=== PATIENT | female | born 1965 | race Hispanic/Latino ===

== ENCOUNTER 2017-01-21 13:24 | Emergency (ER) | payer MEDICAID ==
[2017-01-21 14:20] LABS: Basophils % (Auto) 1.1 % (0.0-1.8); Eosinophils % (Auto) 0.5 % (0.0-4.3); Hematocrit 44.7 % (30.3-42.9); Hemoglobin 15.1 gm/dl (10.1-14.3); Mean Corpuscular HGB Conc 34 % (30-34); Mean Corpuscular Hemoglobin 30 pg (28-32); Mean Corpuscular Volume 90 fl (79-97); Platelet Count 289 K/mm3 (140-440); Red Blood Count 4.99 M/mm3 (3.65-5.03); Red Cell Distribution Width 13.1 % (13.2-15.2); White Blood Count 15.2 K/mm3 (4.5-11.0)
[2017-01-21 14:43] LABS: Alanine Aminotransferase 21 units/L (7-56); Albumin 3.9 g/dL (3.9-5); Alkaline Phosphatase 112 units/L (35-129); Anion Gap 21 mmol/L; BUN/Creatinine Ratio 11.42; Blood Urea Nitrogen 8 mg/dL (7-17); Calcium 9.2 mg/dL (8.4-10.2); Carbon Dioxide 23 mmol/L (22-30); Chloride 97.7 mmol/L (98-107); Glucose 136 mg/dL (65-100); Lipase 34 units/L (13-60); Potassium 4.3 mmol/L (3.6-5.0); Sodium 137 mmol/L (137-145); Total Protein 7.7 g/dL (6.3-8.2)
[2017-01-22] MEDS ORDERED: NACL 0.9% 1000 ML 1,000 ML IV ONE (00:15)
[2017-01-22] MEDS ORDERED: MORPHINE IV ONE (00:15)
[2017-01-22] MEDS ORDERED: ZOFRAN IV ONE (00:15)
[2017-01-22] MEDS ORDERED: LEVAQUIN PO ONE (01:00)
[2017-01-22] MEDS ORDERED: FLAGYL PO ONE (01:00)
--- NOTE | 2017-01-22 01:03 | Emergency Department Report ---
HPI - General Chief Complaint: Abdominal Pain Time Seen by Provider: 01/21/17 23:55 - HPI HPI: The patient is a 51-year-old female who presents for evaluation of abdominal pain. The patient reports left lower quadrant abdominal pain for the past one day, currently 7/10 in severity, cramping in quality, on and off, is worsened with attempts to defecate. The patient denies fever, chills, night sweats, nausea, vomiting, diarrhea, blood in the stool, dark tarry stool, dysuria, hematuria, flank pain, genital discharge, inability to pass flatus or defecate. ED Past Medical Hx - Past Medical History Previous Medical History?: Yes Hx COPD: Yes Additional medical history: skin cancer - Surgical History Past Surgical History?: Yes Hx Cholecystectomy: Yes Additional Surgical History: right knee surgery, growth removal. tubal ligation. left elbow surgery - Social History Smoking Status: Former Smoker Substance Use Type: None - Medications Home Medications: Home Medications Medication Instructions Recorded Confirmed Last Taken Type Cephalexin [Keflex] 500 mg PO QID #30 capsule 12/11/15 Unknown Rx Doxycycline Hyclate [Doxycycline 100 mg PO Q12HR #20 tab 12/11/15 Unknown Rx Hyclate TAB] Ibuprofen [Motrin] 800 mg PO Q8HR PRN #12 tablet 12/11/15 Unknown Rx Ciprofloxacin HCl [Ciprofloxacin 500 mg PO Q12H #14 tab 01/22/17 Unknown Rx TAB] metroNIDAZOLE [Flagyl] 500 mg PO Q12HR #14 tab 01/22/17 Unknown Rx traMADol [Ultram 50 MG tab] 50 mg PO Q6HR PRN #15 tablet 01/22/17 Unknown Rx ED Review of Systems ROS: Stated complaint: ABDOMINAL PAIN Other details as noted in HPI Constitutional: denies: fever ENT: denies: throat or neck pain Respiratory: denies: cough, shortness of breath Cardiovascular: denies: chest pain Endocrine: denies unexplained weight loss or gain Gastrointestinal: reports abdominal pain, nausea Genitourinary: denies: dysuria Musculoskeletal: denies: leg swelling Skin: denies: rash Neurological: denies: headache Hematological/Lymphatic: denies: easy bleeding or easy bruising Psych: denies sadness or hopelessness Physical Exam - Physical Exam Vital Signs: Vital Signs 01/21/17 01/21/17 13:44 23:33 Temperature 98.4 F 98.6 F Pulse Rate 99 H 101 H Respiratory 20 18 Rate Blood Pressure 153/94 145/94 O2 Sat by Pulse 100 100 Oximetry Physical Exam: General: well-nourished, well-developed, no acute distress Head: Normocephalic, atraumatic Eyes: normal sclera ENT: Mucous membranes are pale and dry Neck: trachea midline, neck supple, No neck stiffness, no cervical adenopathy Respiratory: Breath sounds equal bilaterally, no wheezing, rales, or rhonchi Cardio: S1 and S2 present, no murmurs, rubs, gallops, capillary refill is delayed Abdomen: Normoactive bowel sounds, soft abdomen, left lower quadrant tenderness to palpation present, no rigidity, no guarding or rebound tenderness Chest WALL/Back: No tenderness to palpation of the chest wall, no CVA tenderness with percussion Musc: No pitting edema Skin: No rash Neuro: no facial drooping, normal speech Psych: Normal affect ED Course Vital Signs 01/21/17 01/21/17 13:44 23:33 Temperature 98.4 F 98.6 F Pulse Rate 99 H 101 H Respiratory 20 18 Rate Blood Pressure 153/94 145/94 O2 Sat by Pulse 100 100 Oximetry ED Medical Decision Making - Lab Data Result diagrams: 01/21/17 14:04 01/21/17 14:04 - Medical Decision Making The patient was seen and examined by myself. The patient is placed on a director of cardiac cath lab and continuous pulse ox. On initial evaluation, the patient was found to be in no distress. Evaluation orders were placed. The patient is given 1 L normal saline fluid bolus for treatment of dehydration. Lab results reveal mildly elevated WBC of 15, nonspecific, and elevated hemoglobin and hematocrit , consistent with hemoconcentration and exam findings of dehydration, . The patient was reevaluated and reported that their symptoms were improved. On reexamination the patient remains with only left lower quadrant tenderness suggestive of diverticulitis, and the patient's abdomen remains soft, without abd guarding, rebound tenderness, or abd rigidity, abdomen is nonacute. The patient is given ciprofloxacin and Flagyl for treatment of suspected diverticulitis. The patient is stable for discharge with outpatient follow-up as she is afebrile with non-acute abdomen. The patient is given follow-up and return instructions. The patient expressed understanding and agreed with the plan. The patient is discharged in stable condition. Critical care attestation.: If time is entered above; I have spent that time in minutes in the direct care of this critically ill patient, excluding procedure time. ED Disposition Clinical Impression: Abdominal pain, acute, left lower quadrant, Dehydration Hypertension Qualifiers: Hypertension type: unspecified Qualified Code(s): I10 - Essential (primary) hypertension Disposition: TO HOME OR SELFCARE Is pt being admited?: No Does the pt Need Aspirin: No Condition: Stable Instructions: Abdominal Pain (ED), Hypertension (ED), Diverticulitis (ED) Prescriptions: Ciprofloxacin HCl [Ciprofloxacin TAB] 500 mg PO Q12H #14 tab metroNIDAZOLE [Flagyl] 500 mg PO Q12HR #14 tab traMADol [Ultram 50 MG tab] 50 mg PO Q6HR PRN #15 tablet PRN Reason: Pain Referrals: PRIMARY CARE,MD [Primary Care Provider] - 3-5 Days Time of Disposition: 00:58
[2017-01-22 01:34] LABS: Bacteria,Urine 1+ /HPF (Negative); Bilirubin,Urine NEG (Negative); Blood,Urine MOD (Negative); Ketones,Urine NEG (Negative); Leukocyte Esterase,Urine SM (Negative); Mucus,Urine FEW /HPF; Nitrite,Urine NEG (Negative); Protein,Urine <15 mg/dL mg/dL (Negative)
[2017-01-22 02:52] VITALS: BP 108/78
== END 2017-01-22 02:53 | disposition home or self-care (01) ==
LOC: ED 13:24
DX: E86.0 Dehydration (principal); R10.32 Left lower quadrant pain; I10 Essential (primary) hypertension; J44.9 Chronic obstructive pulmonary disease, unspecified; Z87.891 Personal history of nicotine dependence
CPT/HCPCS: 36415; 80053; 81001; 83690; 85025; 96361; 96374; 96375; 99284; J2270; J2405; J7030

== ENCOUNTER 2017-02-20 20:08 | Emergency (ER) | payer MEDICAID ==
--- NOTE | 2017-02-20 21:21 | Emergency Department Report ---
ED ENT HPI - General Chief complaint: Nosebleed Stated complaint: NOSE BLEED Time Seen by Provider: 02/20/17 21:02 Source: patient, EMS Mode of arrival: Stretcher Limitations: No Limitations - History of Present Illness Initial comments: 52 years old female coming with a sudden onset of epistaxis left nostril. Patient denied any injury. She is not on any anticoagulant medication. 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 MD complaint: epistaxis -: Sudden Severity: moderate - Related Data Previous Rx's Medication Instructions Recorded Last Taken Type Cephalexin [Keflex] 500 mg PO QID #30 capsule 12/11/15 Unknown Rx Doxycycline Hyclate [Doxycycline 100 mg PO Q12HR #20 tab 12/11/15 Unknown Rx Hyclate TAB] Ibuprofen [Motrin] 800 mg PO Q8HR PRN #12 tablet 12/11/15 Unknown Rx Ciprofloxacin HCl [Ciprofloxacin 500 mg PO Q12H #14 tab 01/22/17 Unknown Rx TAB] metroNIDAZOLE [Flagyl] 500 mg PO Q12HR #14 tab 01/22/17 Unknown Rx traMADol [Ultram 50 MG tab] 50 mg PO Q6HR PRN #15 tablet 01/22/17 Unknown Rx Amoxicillin [Amoxicillin TAB] 875 mg PO BID #14 tablet 02/20/17 Unknown Rx Ondansetron [Zofran Odt] 4 mg PO Q8HR PRN #14 tab.rapdis 02/20/17 Unknown Rx traMADol [Ultram] 50 mg PO Q6HR PRN #14 tablet 02/20/17 Unknown Rx Allergies Allergy/AdvReac Type Severity Reaction Status Date / Time promethazine HCl Allergy Unknown Verified 02/20/17 20:50 [From Phenergan] ED Dental HPI - General Chief complaint: Nosebleed Stated complaint: NOSE BLEED Time Seen by Provider: 02/20/17 21:02 Source: patient, EMS Mode of arrival: Stretcher Limitations: No Limitations - Related Data Previous Rx's Medication Instructions Recorded Last Taken Type Cephalexin [Keflex] 500 mg PO QID #30 capsule 12/11/15 Unknown Rx Doxycycline Hyclate [Doxycycline 100 mg PO Q12HR #20 tab 12/11/15 Unknown Rx Hyclate TAB] Ibuprofen [Motrin] 800 mg PO Q8HR PRN #12 tablet 12/11/15 Unknown Rx Ciprofloxacin HCl [Ciprofloxacin 500 mg PO Q12H #14 tab 01/22/17 Unknown Rx TAB] metroNIDAZOLE [Flagyl] 500 mg PO Q12HR #14 tab 01/22/17 Unknown Rx traMADol [Ultram 50 MG tab] 50 mg PO Q6HR PRN #15 tablet 01/22/17 Unknown Rx Amoxicillin [Amoxicillin TAB] 875 mg PO BID #14 tablet 02/20/17 Unknown Rx Ondansetron [Zofran Odt] 4 mg PO Q8HR PRN #14 tab.rapdis 02/20/17 Unknown Rx traMADol [Ultram] 50 mg PO Q6HR PRN #14 tablet 02/20/17 Unknown Rx Allergies Allergy/AdvReac Type Severity Reaction Status Date / Time promethazine HCl Allergy Unknown Verified 02/20/17 20:50 [From Phenergan] ED Review of Systems ROS: Stated complaint: NOSE BLEED Other details as noted in HPI Comment: All other systems reviewed and negative Constitutional: denies: chills, fever ENT: denies: ear pain, throat pain Respiratory: denies: cough, orthopnea, shortness of breath, SOB with exertion, SOB at rest, stridor Gastrointestinal: denies: nausea, hematemesis, melena Genitourinary: denies: hematuria Skin: lesions (rt nose,chronic) Hematological/Lymphatic: denies: easy bleeding, easy bruising, swollen glands ED Past Medical Hx - Past Medical History Previous Medical History?: Yes Hx of Cancer: Yes (skin) Hx COPD: Yes Additional medical history: skin cancer - Surgical History Past Surgical History?: Yes Hx Cholecystectomy: Yes Additional Surgical History: right knee surgery, growth removal. tubal ligation. left elbow surgery - Social History Smoking Status: Former Smoker Substance Use Type: None - Medications Home Medications: Home Medications Medication Instructions Recorded Confirmed Last Taken Type Cephalexin [Keflex] 500 mg PO QID #30 capsule 12/11/15 Unknown Rx Doxycycline Hyclate [Doxycycline 100 mg PO Q12HR #20 tab 12/11/15 Unknown Rx Hyclate TAB] Ibuprofen [Motrin] 800 mg PO Q8HR PRN #12 tablet 12/11/15 Unknown Rx Ciprofloxacin HCl [Ciprofloxacin 500 mg PO Q12H #14 tab 01/22/17 Unknown Rx TAB] metroNIDAZOLE [Flagyl] 500 mg PO Q12HR #14 tab 01/22/17 Unknown Rx traMADol [Ultram 50 MG tab] 50 mg PO Q6HR PRN #15 tablet 01/22/17 Unknown Rx Amoxicillin [Amoxicillin TAB] 875 mg PO BID #14 tablet 02/20/17 Unknown Rx Ondansetron [Zofran Odt] 4 mg PO Q8HR PRN #14 tab.rapdis 02/20/17 Unknown Rx traMADol [Ultram] 50 mg PO Q6HR PRN #14 tablet 02/20/17 Unknown Rx ED Physical Exam - General Limitations: No Limitations General appearance: alert, in no apparent distress - Head Head exam: Present: atraumatic, normocephalic - Eye Eye exam: Present: normal appearance - ENT ENT exam: Present: other (active bleeding from the left nostril) ED Course Vital Signs 02/20/17 02/20/17 21:00 22:00 Pulse Rate 103 H 94 H Respiratory 20 18 Rate Blood Pressure 133/76 130/71 [Right] O2 Sat by Pulse 95 100 Oximetry - Reevaluation(s) Reevaluation #1: 02/20/17 22:29 Assessment: No more bleeding. We'll discharge home with a nasal packing. Prescribed antibiotic is advised to follow always hard primary care physician or she can come back to the ER for removal. - Procedure Description Procedures done: Rhinocort applied to the left nastoril for epistaxis bleeding is stopped after the procedure ED Medical Decision Making - Lab Data Result diagrams: 02/20/17 Unknown 02/20/17 Unknown Critical care attestation.: If time is entered above; I have spent that time in minutes in the direct care of this critically ill patient, excluding procedure time. ED Disposition Clinical Impression: Epistaxis Disposition: DC-01 TO HOME OR SELFCARE Is pt being admited?: No Does the pt Need Aspirin: No Condition: Stable Instructions: Epistaxis (ED) Referrals: PRIMARY CARE,MD [Primary Care Provider] - 3-5 Days
[2017-02-20 22:03] LABS: Eosinophils % (Auto) 3.4 % (0.0-4.3); Hematocrit 41.6 % (30.3-42.9); Hemoglobin 13.7 gm/dl (10.1-14.3); Mean Corpuscular HGB Conc 33 % (30-34); Mean Corpuscular Hemoglobin 30 pg (28-32); Mean Corpuscular Volume 90 fl (79-97); Platelet Count 264 K/mm3 (140-440); Red Blood Count 4.62 M/mm3 (3.65-5.03); Red Cell Distribution Width 13.2 % (13.2-15.2); White Blood Count 10.5 K/mm3 (4.5-11.0)
[2017-02-20 22:07] LABS: INR 1.08 (0.87-1.13); Partial Thromboplastin Time 26.5 Sec. (24.2-36.6)
[2017-02-20 22:10] LABS: Anion Gap 17 mmol/L; BUN/Creatinine Ratio 11.42; Blood Urea Nitrogen 8 mg/dL (7-17); Calcium 8.8 mg/dL (8.4-10.2); Carbon Dioxide 25 mmol/L (22-30); Glucose 179 mg/dL (65-100); Sodium 138 mmol/L (137-145)
[2017-02-20 22:14] LABS: Alanine Aminotransferase 16 units/L (7-56); Albumin 3.8 g/dL (3.9-5); Albumin/Globulin Ratio 1.3 %; Alkaline Phosphatase 93 units/L (35-129); Total Protein 6.7 g/dL (6.3-8.2)
[2017-02-20 22:16] LABS: Bilirubin,Direct < 0.2 mg/dL (0-0.2); Bilirubin,Indirect 0.2 mg/dL
[2017-02-20 22:26] VITALS: BP 130/71
[2017-02-20] MEDS ORDERED: TORADOL IM ONE (22:30)
[2017-02-20] MEDS ORDERED: TORADOL ONE (22:32)
== END 2017-02-20 22:45 | disposition home or self-care (01) ==
LOC: ED 20:08
DX: R04.0 Epistaxis (principal); J44.9 Chronic obstructive pulmonary disease, unspecified; Z88.8 Allergy status to other drugs, medicaments and biological substances; Z87.891 Personal history of nicotine dependence
CPT/HCPCS: 30901; 36415; 80048; 80074; 85025; 85610; 85730; 96372; 99283; J1885